=== PATIENT | female | born 1990 | race Caucasian/White ===

== ENCOUNTER 2021-10-08 20:34 | Emergency (ER) | payer BC ==
[~2021-10-08] VITALS: Ht 167.6 cm; Wt 68.1 kg
--- NOTE | 2021-10-08 21:36 | PHYS DOC ---
Past Medical History Past Surgical History: Other Additional Past Surgical Histo: R arm General Adult EDM: Chief Complaint: HAND PROBLEM HPI: HPI: Patient is a 30-year-old female who presents to the emergency department complaining of 10 out of 10 fingertip pain to bilateral index finger tips with callusing. Patient states she thinks she might have scleroderma as her symptoms were similar to that of what she looked up on the Internet. Patient denies chest pains, shortness of breath, chest palpitations, denies history of hypertension, denies dizziness, syncopal or near syncopal episodes. Patient reports her last tetanus immunization was greater than 5 years ago. Patient reports she took Tylenol at 6:00 this morning with some relief in pain and was able to sleep. Patient reports her pain is currently a 10 out of 10. Patient states her last menstrual cycle was greater than 5 years ago as she has had an IUD placed. Patient denies other physical complaints or physical concerns. Patient reports she does smoke cigarettes, occasional alcohol use, denies illicit drug use. Review of Systems: Review of Systems: 14 body systems of review of systems have been reviewed. See HPI for pertinent positives and negative responses, otherwise all other systems are negative, nonpertinent or noncontributory. Constitutional: Negative except as outlined in HPI above. Skin: Negative except as outlined in HPI above. Eyes: Negative except as outlined in HPI above. HENT: Negative except as outlined in HPI above. Respiratory: Negative except as outlined in HPI above. Cardiovascular: Negative except as outlined in HPI above. GI: Negative except as outlined in HPI above. : Negative except as outlined in HPI above. Musculoskeletal: Negative except as outlined in HPI above. Integument: Negative except as outlined in HPI above. Neurologic: Negative except as outlined in HPI above. Endocrine: Negative except as outlined in HPI above. Lymphatic: Negative except as outlined in HPI above. Psychiatric: Negative except as outlined in HPI above. Heart Score: C/O Chest Pain: No Risk Factors: Risk Factors: DM, Current or recent (<one month) smoker, HTN, HLP, family history of CAD, obesity. Risk Scores: Score 0 - 3: 2.5% MACE over next 6 weeks - Discharge Home Score 4 - 6: 20.3% MACE over next 6 weeks - Admit for Clinical Observation Score 7 - 10: 72.7% MACE over next 6 weeks - Early Invasive Strategies Allergies: Allergies: Allergies Coded Allergies Type Severity Reaction Last Updated Verified Penicillins Allergy Unknown 10/08/21 Yes Physical Exam: PE: Constitutional: Well developed, well nourished, no acute distress, non-toxic appearance. 30-year-old female in no apparent distress. HENT: Normocephalic, atraumatic. Eyes: Conjunctiva normal, no discharge. Neck: Normal range of motion, no stridor. Cardiovascular: No cyanosis appreciated, distal cap refill less than 2 seconds. Lungs & Thorax: Patient is in no respiratory distress, no audible adventitious lung sounds appreciated. Abdomen: Nontender, no abnormalities noted. Skin: Warm, dry, no erythema, no rash. See extremity note for focused skin examination. Back: No tenderness, no deformities. Extremities: No tenderness, no cyanosis, no clubbing, ROM intact, no edema. Except for bilateral index fingers, there are calluses at the fingertips. Cap refill is less than 2 seconds equal bilateral upper extremities, 2+ radial pulses equal bilateral upper extremities. Full passive range of motion of all fingers of both left and right hand. The fingernails are intact. Neurologic: Alert and oriented X 3, normal motor function, normal sensory function, no focal deficits noted. Psychologic: Affect normal, judgement normal, mood normal. Current Patient Data: Vital Signs: Vital Signs Date Time Temp Pulse Resp B/P (MAP) Pulse Ox O2 Delivery O2 Flow Rate FiO2 10/08/21 20:35 98.4 84 18 153/70 (97) 98 Room Air 98.4 EKG: EKG: [] Radiology/Procedures: Radiology/Procedures: [] Course & Med Decision Making: Course & Med Decision Making Pertinent Labs and Imaging studies reviewed. (See chart for details) 30-year-old female, vital signs reviewed, presents to the emergency department concerning painful fingertips. Physical examination reveals calluses at fingertips. There was also noted yellowing of medial index finger tip and lateral middle finger tip consistent with heavy cigarette smoking. Discussed smoking cessation with patient, patient states she is aware that she needs to quit smoking and will try soon. Will bring patient's tetanus immunization up-to-date today in the emergency department. The patient's bilateral index finger tips are cracked and callused. Recommended to patient using Eucerin cream for moisturization. Strict follow-up with primary care provider, patient reports she does not have a primary care provider, discussed with patient will give list of area healthcare clinics and providers for her to establish care with. We will also give information for [facility] hand specialty for ongoing symptoms. Patient gave verbal understanding of and is amenable to ED discharge planning. Discussed with the patient all findings and diagnostic testing as well as the need to follow-up with their primary care provider for further evaluation and treatment or return to the ED if any new or worsening symptoms. Strict return precautions were also discussed at length, the patient voiced understanding and agreement with the discharge planning. The patient was nontoxic in appearance, in no apparent distress, and hemodynamically stable at the time of disposition. AIRTAME Disclaimer: AIRTAME Disclaimer: This electronic medical record was generated, in whole or in part, using a voice recognition dictation system. Departure Departure Impression: Primary Impression: Bilateral finger arthralgia Additional Impressions: Need for Tdap vaccination Cigarette smoker Disposition: HOME / SELF CARE / HOMELESS Condition: GOOD Referrals: NO PCP (PCP) Patient Instructions: Smoking Cessation Additional Instructions: You were seen today in the emergency department for fingertip pain, calluses to your fingertips. As we discussed, please use an [id number] moisturizer such as Eucerin cream to help soften your skin fingertips. I have attached a list of area healthcare providers to this document for you to establish primary care. Please see a healthcare provider this coming week. You may also consider using the [facility] hand specialty team, their telephone number [phone], you may call for an appointment to be seen next week. You may continue to use [id number] Tylenol or ibuprofen for ongoing discomfort. Thank you for visiting our Emergency Department. It was a pleasure taking care of you today in the emergency department and we appreciate you trusting us with your care. If any additional problems come up don't hesitate to return to visit us. Please follow up with your primary care provider so they can plan additional care if needed and know about the problem that you had. If symptoms worsen come back to the Emergency Department. Any concerning symptoms that start such as chest pain, shortness of air, weakness or numbness on one side of the body, running high fevers or any other concerning symptoms return to the ER. [facility] [address] [place] [address] [facility] [address] [place] [address] [facility] [address] [place] [address] [facility] [address] [place] [address] [facility] [address] [place] [address] [address] [address] [place] [address] [address] [address] [place] [address] [facility] [address] [place] [address] [facility] [address] [place] [address] [facility] [address] [place] [address] ROBIN LUKE APRN October 08, 2021 21:36
[2021-10-08 21:51] VITALS: BP 136/68
[2021-10-08] MEDS ORDERED: HYDROcodone/APAP 5/325MG 1 TAB TABLET PO ONE (22:00)
[2021-10-08] MEDS ORDERED: DIPHTH,PERTUSS(ACELL),TET TOX 0.5 ML DISP.SYRIN. VAX IM ONE (22:00)
[2021-10-08] MEDS ORDERED: IBUPROFEN 200 MG TABLET. PO ONE (22:00)
== END 2021-10-08 21:51 | disposition home or self-care (01) ==
LOC: ER 20:34
DX: M79.644 Pain in right finger(s) (principal); F17.210 Nicotine dependence, cigarettes, uncomplicated; Z88.0 Allergy status to penicillin
CPT/HCPCS: 90471; 90715; 99283